=== PATIENT | male | born 1950 | race Hispanic/Latino ===

== ENCOUNTER 2017-09-29 11:42 | Observation (INO) | payer BC, MEDICARE ==
[~2017-09-29] VITALS: Ht 182.9 cm; Wt 109.8 kg
[2017-09-29 12:06] LABS: BASOPHILS % (AUTO) 0.5 % (0.0-5.0); EOSINOPHILS % (AUTO) 0.5 % (0.0-8.0); HEMATOCRIT 48.4 % (42-54); MEAN CORPUSCULAR HEMOGLOBIN 30.8 pg (27.0-33.0); MEAN CORPUSCULAR VOLUME 87.8 fL (79-99); MONOCYTES % (AUTO) 8.5 % (3.0-13.0); NEUTROPHILS % (AUTO) 80.5 % (40.0-77.0); PLATELET COUNT (AUTO) 260 K/uL (130-400); RED BLOOD CELL COUNT(AUTO) 5.51 MIL/uL (4.50-6.20); RED CELL DISTRIBUTION WIDTH 13.2 % (11.0-15.5); WHITE BLOOD COUNT (AUTO) 11.9 K/uL (4.8-10.8)
[2017-09-29 12:09] LABS: APPEARANCE,URINE Clear (CLEAR); BILIRUBIN,URINE Negative (NEGATIVE); COLOR,URINE Yellow (YELLOW); GLUCOSE, URINE (UA) Negative (NEGATIVE); KETONES,URINE Negative (NEGATIVE); LEUKOCYTE ESTERASE ,URINE Moderate (NEGATIVE); NITRATE,URINE Negative (NEGATIVE); OCCULT BLOOD,URINE Moderate (NEGATIVE); PROTEIN,URINE Trace (NEGATIVE); UROBILINOGEN,URINE 0.2 mg/dL (0.2-1.0)
[2017-09-29 12:14] LABS: CREATININE 1.2 mg/dL (0.5-1.5); POTASSIUM 3.8 mmol/L (3.5-5.1)
[2017-09-29 12:19] LABS: ALBUMIN 4.1 g/dL (3.5-5.0); BILIRUBIN,TOTAL 1.5 mg/dL (0.2-1.0); TOTAL PROTEIN, SERUM 7.7 g/dL (6.0-8.3)
[2017-09-29] MEDS ORDERED: ONDANSETRON HCL 4 MG/2 ML VIAL ONE (12:38)
[2017-09-29] MEDS ORDERED: MORPHINE SULFATE 4 MG/1ML SYG ONE (12:38)
[2017-09-29 12:45] LABS: BACTERIA,URINE Moderate /HPF (None Seen)
[2017-09-29 12:46] LABS: SQUAMOUS EPITHELIAL CELL,UR Rare /LPF (0-2)
[2017-09-29] MEDS ORDERED: KETOROLAC TROMETHAMINE 30MG/ML ONE (13:04)
[2017-09-29] MEDS ORDERED: SODIUM CHLORIDE 0.9% 1000ML 1,000 ML IV ONE (13:04)
[2017-09-29 17:25] VITALS: BP 136/85
[2017-09-29] MEDS ORDERED: NALOXONE HCL 0.4 MG/1 ML ML IVP PRN (18:15)
[2017-09-29] MEDS ORDERED: SODIUM CHLORIDE 0.9% 1000ML 1,000 ML IV PRN (18:15)
[2017-09-29] MEDS ORDERED: HYDROMORPHONE PCA 10MG/50 ML ( 0.2 MG/ML ) IV PRN (18:15)
[2017-09-29 20:00] VITALS: BP 142/76
[2017-09-29] MEDS ORDERED: ONDANSETRON HCL 4 MG/2 ML VIAL IVP PRN (21:00)
[2017-09-30] VITALS (25 sets, daily range): BP systolic 104–164; BP diastolic 2–87
[2017-09-30] MEDS ORDERED: VALS320T15 PO (09:46)
[2017-09-30] MEDS ORDERED: AMLO5TAB2 PO (09:46)
[2017-09-30] MEDS ORDERED: PHARMACY COMMUNICATION MISC SCH (10:00)
[2017-09-30] MEDS ORDERED: ONDANSETRON HCL 4 MG/2 ML VIAL IVP PRN (12:45)
[2017-09-30] MEDS ORDERED: CEFTRIAXONE 1GM/D5W 50ML 50 ML IV SCH (12:45)
[2017-09-30] MEDS ORDERED: CEFTRIAXONE SODIUM 1 GM IVP SCH (12:45)
[2017-09-30] MEDS ORDERED: HYDROMORPHONE HCL 2 MG/ML VIAL IVP PRN ×2 (13:45→21:30)
[2017-09-30] MEDS ORDERED: KETOROLAC TROMETHAMINE 15MG/ML IV PRN (13:45)
[2017-09-30] MEDS ORDERED: DEXAMETHASONE SOD PHOSPHATE 10MG/ML 1ML VIAL ONE (17:30)
[2017-09-30] MEDS ORDERED: ROCURONIUM BROMIDE 10MG/1ML 5ML VL ONE (17:30)
[2017-09-30] MEDS ORDERED: LIDOCAINE PF 2% 5ML ABBOJECT ONE (17:30)
[2017-09-30] MEDS ORDERED: MIDAZOLAM HCL 1 MG/ML 2ML VIAL ONE (17:30)
[2017-09-30] MEDS ORDERED: ONDANSETRON HCL 4 MG/2 ML VIAL ONE ×2 (17:30→20:35)
[2017-09-30] MEDS ORDERED: PROPOFOL 10 MG/ML 20ML VIAL IV ONE (17:31)
[2017-09-30] MEDS ORDERED: FENTANYL CITRATE PF 50 MCG/1 ML 2ML VIAL ONE ×3 (17:31→19:35)
[2017-09-30] MEDS ORDERED: SODIUM CHLORIDE 0.9% 1000ML 1,000 ML IV ONE (17:36)
[2017-09-30] MEDS ORDERED: ISOVUE-370 50ML VIAL IV ONE (17:50)
[2017-09-30] MEDS ORDERED: HYDROCODONE/ACETAMINOPHEN 5/325 MG TAB PO PRN ×2 (21:30)
[2017-10-01 00:11] VITALS: BP 119/72
[2017-10-01 03:45] VITALS: BP 104/60
[2017-10-01 07:00] VITALS: BP 116/76
[2017-10-01] MEDS ORDERED: TAMSULOSIN HCL 0.4 MG CAP.ER.24H PO SCH (09:00)
== END 2017-10-01 10:30 | disposition home or self-care (01) ==
LOC: EDH 11:42 → EDHIP 15:01 → 3BH 16:54
PROVIDERS: ADMIT Internal Medicine; ATTEND Internal Medicine
DX: N13.2 Hydronephrosis with renal and ureteral calculous obstruction (principal); N23 Unspecified renal colic; I10 Essential (primary) hypertension; M19.90 Unspecified osteoarthritis, unspecified site; N40.0 Benign prostatic hyperplasia without lower urinary tract symptoms; Z87.442 Personal history of urinary calculi; Z96.659 Presence of unspecified artificial knee joint
CPT/HCPCS: 36415; 50590; 74018; 74176; 80053; 81001; 85025; 96365; 96375; 96376; 99285; A4218; G0378 ×43; J0696; J1100; J1170; J1885 ×2; J2001; J2250; J2270; J2405 ×5; J2704; J3010 ×3; J3490; J7030 ×2; Q9967

== ENCOUNTER → 2018-12-07 | Outpatient (CLI) | payer BC, MEDICARE ==
[~2018-12-07] MED LIST: AMLO5TAB9 PO; VALS320T16 PO
== END | disposition home or self-care (01) ==
LOC: OIH 13:40
PROVIDERS: ATTEND Internal Medicine
DX: J98.4 Other disorders of lung (principal); M47.814 Spondylosis without myelopathy or radiculopathy, thoracic region; I70.0 Atherosclerosis of aorta; M85.88 Other specified disorders of bone density and structure, other site; Q25.46 Tortuous aortic arch; I10 Essential (primary) hypertension
CPT/HCPCS: 71046

== ENCOUNTER 2018-12-09 02:25 | Emergency (ER) | payer BC, MEDICARE ==
[2018-12-09 02:59] LABS: APPEARANCE,URINE Clear (CLEAR); BILIRUBIN,URINE Negative (NEGATIVE); COLOR,URINE Yellow (YELLOW); GLUCOSE, URINE (UA) Negative (NEGATIVE); KETONES,URINE Negative (NEGATIVE); LEUKOCYTE ESTERASE ,URINE Moderate (NEGATIVE); NITRATE,URINE Negative (NEGATIVE); OCCULT BLOOD,URINE Negative (NEGATIVE); PH,URINE 6.5 (5.0-8.0); PROTEIN,URINE Negative (NEGATIVE); UROBILINOGEN,URINE 0.2 mg/dL (0.2-1.0)
[2018-12-09 03:06] LABS: BASOPHILS % (AUTO) 0.9 % (0.0-5.0); EOSINOPHILS % (AUTO) 3.1 % (0.0-8.0); LYMPHOCYTES % (AUTO) 11.5 % (21.0-51.0); MEAN CORPUSCULAR HEMOGLOBIN 31.9 pg (27.0-33.0); MEAN CORPUSCULAR HGB CONC 35.2 g/dL (32.0-36.0); MEAN CORPUSCULAR VOLUME 90.5 fL (79-99); NEUTROPHILS % (AUTO) 74.5 % (40.0-77.0); PLATELET COUNT (AUTO) 183 K/uL (130-400); RED BLOOD CELL COUNT(AUTO) 4.09 MIL/uL (4.50-6.20); RED CELL DISTRIBUTION WIDTH 13.7 % (11.0-15.5); WHITE BLOOD COUNT (AUTO) 4.9 K/uL (4.8-10.8)
[2018-12-09 03:11] LABS: CREATININE 0.8 mg/dL (0.5-1.5)
[2018-12-09 03:11] LABS: BACTERIA,URINE Few /HPF (None Seen); RBC,URINE 0-1 /HPF (0-1); SQUAMOUS EPITHELIAL CELL,UR 0-2 /HPF (0-2)
[2018-12-09 03:15] LABS: POTASSIUM 2.7 mmol/L (3.5-5.1)
[2018-12-09] MEDS ORDERED: POTASSIUM CHLORIDE 20 MEQ ERTAB PO ONE (03:31)
[2018-12-09] MEDS ORDERED: CEPHALEXIN 500 MG CAPSULE ONE (03:38)
[2018-12-09] MEDS ORDERED: MAGNESIUM OXIDE 400 MG TABLET PO ONE (04:18)
== END 2018-12-09 04:28 | disposition home or self-care (01) ==
LOC: EDH 02:25
DX: R33.9 Retention of urine, unspecified (principal); N39.0 Urinary tract infection, site not specified; E87.6 Hypokalemia; I10 Essential (primary) hypertension; Z87.442 Personal history of urinary calculi
CPT/HCPCS: 36415; 51702; 80048; 81001; 83735; 85025; 87077; 87088; 87186; 93005

== ENCOUNTER → 2020-02-02 | Outpatient (CLI) | payer MEDICARE, OTHER | END | disposition home or self-care (01) | LOC: RAH 09:04 | PROVIDERS: ATTEND Internal Medicine | DX: R16.0 Hepatomegaly, not elsewhere classified (principal); N28.1 Cyst of kidney, acquired ==

== ENCOUNTER 2021-11-26 16:12 | Emergency (ER) | payer MEDICARE, OTHER ==
[~2021-11-26] VITALS: Ht 182.9 cm; Wt 113.4 kg
[~2021-11-26 16:12] MED LIST changes: +AMLO-257 PO; -AMLO5TAB9 PO
[2021-11-26 17:19] LABS: APPEARANCE,URINE Clear (CLEAR); BILIRUBIN,URINE Negative (NEGATIVE); COLOR,URINE Yellow (YELLOW); GLUCOSE, URINE (UA) Negative (NEGATIVE); KETONES,URINE Negative (NEGATIVE); LEUKOCYTE ESTERASE ,URINE Moderate (NEGATIVE); NITRATE,URINE Negative (NEGATIVE); OCCULT BLOOD,URINE Large (NEGATIVE); PH,URINE 6.5 (5.0-8.0); PROTEIN,URINE POS 1+ mg/dL (NEGATIVE)
[2021-11-26 17:38] LABS: BACTERIA,URINE Few /HPF (None Seen); MUCUS,URINE None Seen LPF (None Seen); SQUAMOUS EPITHELIAL CELL,UR 0-2 /HPF (0-2)
[2021-11-26 17:42] LABS: BASOPHILS % (AUTO) 0.8 % (0.0-5.0); EOSINOPHILS % (AUTO) 1.9 % (0.0-8.0); HEMATOCRIT 42.7 % (42-54); LYMPHOCYTES % (AUTO) 18.2 % (21.0-51.0); MEAN CORPUSCULAR HEMOGLOBIN 31.8 pg (27.0-33.0); MEAN CORPUSCULAR HGB CONC 34.9 g/dL (32.0-36.0); MONOCYTES % (AUTO) 9.2 % (3.0-13.0); NEUTROPHILS % (AUTO) 69.7 % (40.0-77.0); PLATELET COUNT (AUTO) 169 K/uL (130-400); RED BLOOD CELL COUNT(AUTO) 4.69 MIL/uL (4.50-6.20); RED CELL DISTRIBUTION WIDTH 13.8 % (11.0-15.5); WHITE BLOOD COUNT (AUTO) 4.8 K/uL (4.8-10.8)
[2021-11-26 17:51] LABS: CREATININE 0.8 mg/dL (0.5-1.5); POTASSIUM 3.4 mmol/L (3.5-5.1)
[2021-11-26] MEDS ORDERED: LEVO500T90 PO (21:30)
[2021-11-26 21:50] VITALS: BP 132/75
[2021-11-26] MEDS ORDERED: LEVOFLOXACIN 500 MG TABLET PO SCH (22:00)
== END 2021-11-26 22:05 | disposition home or self-care (01) ==
LOC: EDH 16:12
DX: R33.9 Retention of urine, unspecified (principal); N39.0 Urinary tract infection, site not specified; N32.0 Bladder-neck obstruction; E11.9 Type 2 diabetes mellitus without complications; I10 Essential (primary) hypertension; Z79.899 Other long term (current) drug therapy; Z87.440 Personal history of urinary (tract) infections
CPT/HCPCS: 36415; 51702; 80048; 81001; 85025; 87077; 87088; 87186

== ENCOUNTER 2023-05-23 10:38 | Observation (INO) | payer MEDICARE ==
[2023-05-23] VITALS (23 sets, daily range): BP systolic 118–146; BP diastolic 67–89; PULSE 58–77; RESP 15–20; O2SAT 96
[~2023-05-23] VITALS: Ht 181.6 cm; Wt 108.4 kg
[~2023-05-23 10:38] MED LIST changes: +CEPH500B PO; +LEVO-70 PO
[2023-05-23 11:39] LABS: BASOPHILS # (AUTO) 0.02 K/uL (0.00-0.20); BASOPHILS % (AUTO) 0.3 % (0.0-5.0); EOSINOPHILS # (AUTO) 0.04 K/uL (0.00-0.70); EOSINOPHILS % (AUTO) 0.6 % (0.0-8.0); HEMATOCRIT 40.3 % (42-54); IMMATURE GRANULOCYTE ABSOLUTE 0.05 K/uL (0-1); LYMPHOCYTES # (AUTO) 0.5 K/uL (1.0-4.8); LYMPHOCYTES % (AUTO) 7.7 % (21.0-51.0); MEAN CORPUSCULAR HEMOGLOBIN 31.4 pg (27.0-33.0); MEAN CORPUSCULAR HGB CONC 35.5 g/dL (32.0-36.0); MEAN CORPUSCULAR VOLUME 88.4 fL (79-99); MONOCYTES # (AUTO) 0.7 K/uL (0.1-1.0); MONOCYTES % (AUTO) 10.1 % (3.0-13.0); NEUTROPHILS # (AUTO) 5.4 K/uL (1.8-7.7); NEUTROPHILS % (AUTO) 80.5 % (40.0-77.0); PLATELET COUNT (AUTO) 233 K/uL (130-400); RED BLOOD CELL COUNT(AUTO) 4.56 MIL/uL (4.50-6.20); WHITE BLOOD COUNT (AUTO) 6.7 K/uL (4.8-10.8)
[2023-05-23 11:47] LABS: CREATININE 1.1 mg/dL (0.5-1.5); POTASSIUM 3.2 mmol/L (3.5-5.1)
[2023-05-23 11:55] LABS: ALBUMIN 3.1 g/dL (3.5-5.0); BILIRUBIN,TOTAL 1.6 mg/dL (0.2-1.0); TOTAL PROTEIN, SERUM 6.8 g/dL (6.0-8.3)
[2023-05-23 11:59] LABS: INR 1.13 (0.85-1.15)
[2023-05-23 12:00] LABS: PARTIAL THROMBOPLASTIN TIME 29.6 SEC (26.3-35.5)
[2023-05-23 12:30] LABS: APPEARANCE,URINE CLEAR (CLEAR); BILIRUBIN,URINE NEGATIVE (NEGATIVE); COLOR,URINE YELLOW (YELLOW); GLUCOSE, URINE (UA) NEGATIVE (NEGATIVE); KETONES,URINE 5 mg/dL (NEGATIVE); LEUKOCYTE ESTERASE ,URINE 250 Leu/uL (NEGATIVE); NITRATE,URINE NEGATIVE (NEGATIVE); OCCULT BLOOD,URINE MODERATE (NEGATIVE); PH,URINE 5.5 (5.0-8.0); PROTEIN,URINE 10 mg/dL (NEGATIVE); UROBILINOGEN,URINE 0.2 mg/dL (0.2-1.0)
[2023-05-23 12:32] LABS: ADD UA MICROSCOPIC YES
[2023-05-23 12:33] LABS: BACTERIA,URINE RARE /HPF (None Seen); MUCUS,URINE RARE LPF (None Seen); OTHER CASTS, URINE 1 /LPF (None Seen); SQUAMOUS EPITHELIAL CELL,UR RARE /HPF (0-2); UNCLASSIFIED CRYSTAL 1 /HPF (None Seen); WBC,URINE 26-50 /HPF (0-1)
[2023-05-23] MEDS ORDERED: LIDOCAINE PF 100MG/5ML (2%) SYRINGE 5ML ONE (18:36)
[2023-05-23] MEDS ORDERED: PROPOFOL 10 MG/ML 20ML VIAL IV ONE (18:37)
[2023-05-23] MEDS ORDERED: MIDAZOLAM HCL 1 MG/ML 2ML VIAL ONE (18:37)
[2023-05-23] MEDS ORDERED: ONDANSETRON 4MG INJ ONE (18:37)
[2023-05-23] MEDS ORDERED: ROCURONIUM 10MG/1ML SYR 10 MG/ML ML ONE (18:38)
[2023-05-23] MEDS ORDERED: FENTANYL CITRATE PF 50 MCG/1 ML 2ML VIAL ONE ×2 (18:38→19:20)
[2023-05-23] MEDS ORDERED: METOCLOPRAMIDE 10 MG/2 ML VIAL ONE (18:38)
[2023-05-23] MEDS ORDERED: CEFAZOLIN SODIUM 2 GM VIAL IVPB ONE (18:48)
[2023-05-23] MEDS ORDERED: CEFAZOLIN SODIUM 1 GM VIAL ONE (19:05)
[2023-05-23] MEDS ORDERED: EPHEDRINE SULFATE 50 MG/ML AMPULE ONE (19:08)
[2023-05-23] MEDS ORDERED: GLYCOPYRROLATE 1 MG/5 ML SYRINGE ONE (19:13)
[2023-05-24 00:25] VITALS: BP 118/74; PULSE 64; RESP 20
[2023-05-24 01:25] VITALS: BP 128/74; PULSE 65; RESP 20
[2023-05-24 02:25] VITALS: BP 118/68; PULSE 64; RESP 20
[2023-05-24 08:00] VITALS: BP 121/89; PULSE 65; RESP 19
[2023-05-24] MEDS ORDERED: AMLODIPINE 5 MG TAB PO SCH (09:00)
[2023-05-24] MEDS ORDERED: NON-FORMULARY MEDICATION 1 EACH (Valsartan 320 MG) PO SCH (09:00)
[2023-05-24] MEDS ORDERED: LOSARTAN 100 MG TABLET PO SCH (09:00)
[2023-05-24] MEDS ORDERED: CEPHALEXIN 500 MG CAPSULE PO SCH (09:00)
== END 2023-05-24 11:45 | disposition home or self-care (01) ==
LOC: EDH 10:38 → INTOOBSV 10:39 → DIRECT 10:39 → 3CH 17:25
PROVIDERS: ADMIT Internal Medicine; ATTEND Internal Medicine
DX: N35.913 Unspecified membranous urethral stricture, male (principal); R33.9 Retention of urine, unspecified; I10 Essential (primary) hypertension; E11.9 Type 2 diabetes mellitus without complications; E66.01 Morbid (severe) obesity due to excess calories; Z92.3 Personal history of irradiation; Z85.46 Personal history of malignant neoplasm of prostate; Z87.442 Personal history of urinary calculi; Z96.659 Presence of unspecified artificial knee joint; Z68.32 Body mass index [BMI] 32.0-32.9, adult; Z79.899 Other long term (current) drug therapy; Y84.2 Radiological procedure and radiotherapy as the cause of abnormal reaction of the patient, or of later complication, without mention of misadventure at the time of the procedure
CPT/HCPCS: 52281; 80053; 85025; 85610; 85730; 87088; 81001; 36415; 93005 ×2; 82948; G0378 ×23; G0379; J7120; C1758; C1769 ×3; J3010 ×2; J0690 ×2; J3490 ×2; J2001; J2250; J2704; J2405; J2765; A4358

== ENCOUNTER 2024-04-22 07:28 | Day surgery (SDC) | payer MEDICARE ==
[2024-04-21 12:47] LABS: BASOPHILS # (AUTO) 0.03 K/uL (0.00-0.20); BASOPHILS % (AUTO) 0.8 % (0.0-5.0); EOSINOPHILS # (AUTO) 0.15 K/uL (0.00-0.70); EOSINOPHILS % (AUTO) 3.9 % (0.0-8.0); HEMATOCRIT 35.8 % (42-54); IMMATURE GRANULOCYTE ABSOLUTE 0.02 K/uL (0-1); LYMPHOCYTES # (AUTO) 0.8 K/uL (1.0-4.8); LYMPHOCYTES % (AUTO) 21.1 % (21.0-51.0); MEAN CORPUSCULAR HEMOGLOBIN 31.4 pg (27.0-33.0); MEAN CORPUSCULAR HGB CONC 34.1 g/dL (32.0-36.0); MEAN CORPUSCULAR VOLUME 92.3 fL (79-99); MONOCYTES # (AUTO) 0.4 K/uL (0.1-1.0); MONOCYTES % (AUTO) 9.8 % (3.0-13.0); NEUTROPHILS # (AUTO) 2.5 K/uL (1.8-7.7); NEUTROPHILS % (AUTO) 63.9 % (40.0-77.0); PLATELET COUNT (AUTO) 178 K/uL (130-400); RED BLOOD CELL COUNT(AUTO) 3.88 MIL/uL (4.50-6.20); RED CELL DISTRIBUTION WIDTH 13.3 % (11.0-15.5); WHITE BLOOD COUNT (AUTO) 3.9 K/uL (4.8-10.8)
[2024-04-21 12:53] LABS: APPEARANCE,URINE CLEAR (CLEAR); BILIRUBIN,URINE NEGATIVE (NEGATIVE); COLOR,URINE LIGHT-YELLOW (YELLOW); GLUCOSE, URINE (UA) NEGATIVE (NEGATIVE); KETONES,URINE NEGATIVE (NEGATIVE); LEUKOCYTE ESTERASE ,URINE NEGATIVE Leu/uL (NEGATIVE); NITRATE,URINE NEGATIVE (NEGATIVE); OCCULT BLOOD,URINE NEGATIVE (NEGATIVE); PROTEIN,URINE NEGATIVE (NEGATIVE); UROBILINOGEN,URINE 0.2 mg/dL (0.2-1.0)
[2024-04-21 12:56] LABS: ADD UA MICROSCOPIC NO
[2024-04-21 13:00] LABS: CREATININE 2.5 mg/dL (0.5-1.3); POTASSIUM 3.7 mmol/L (3.5-5.1)
[2024-04-21 13:02] LABS: INR 1.11 (0.85-1.15); PROTHROMBIN TIME 11.9 SEC (9.6-11.6)
[2024-04-21 13:04] LABS: PARTIAL THROMBOPLASTIN TIME 26.2 SEC (26.3-35.5)
[2024-04-21 13:10] VITALS: BP 130/80; PULSE 65; RESP 17; TEMP 98.4
[~2024-04-22] VITALS: Ht 182.9 cm; Wt 99.7 kg
[2024-04-22] VITALS (22 sets, daily range): BP systolic 127–192; BP diastolic 79–104; PULSE 54–100; RESP 14–18; TEMP 97.3–97.9
[~2024-04-22 07:28] MED LIST changes: -AMLO-257 PO; +CENTRUM SILVER PO; -CEPH500B PO; +ESCI20TA38 PO; +FINA5TAB41 PO; -LEVO-70 PO; +OXYB10TA30 PO; +POTA99CA PO; +TAMS-1 PO; +TELM80TA10 PO; +TIRZ7.5P SQ; -VALS320T16 PO
[2024-04-22] MEDS: cefTRIAXone 1G VIAL ONE (08:38)
[2024-04-22] MEDS: 0.9%NACL 1000ML 1,000 ML IV ONE (08:38)
[2024-04-22] MEDS ORDERED: dexaMETHasone SOD PHOSPHATE 10MG/ML 1ML VIAL ONE (09:51)
[2024-04-22] MEDS ORDERED: LIDOCAINE HCL MPF 1% 5ML VIAL ONE (09:51)
[2024-04-22] MEDS ORDERED: rocuRONium bROMide 10MG/1ML 5ML VL ONE ×2 (09:52→11:00)
[2024-04-22] MEDS ORDERED: proPOFol 10 MG/ML 20ML VIAL IV ONE (09:52)
[2024-04-22] MEDS ORDERED: FENTanyl CITRate PF 50 MCG/1 ML 5ML AMP IV ONE (09:52)
[2024-04-22] MEDS ORDERED: MIDAZOLAM HCL 1 MG/ML 2ML VIAL ONE (09:52)
[2024-04-22] MEDS ORDERED: NEOSTIGMINE METHYLSULFATE 1MG/ML IV ONE (09:52)
[2024-04-22] MEDS ORDERED: ONDANSETRON 4MG INJ ONE (09:52)
[2024-04-22] MEDS ORDERED: GLYCOPYRROLATE 0.2 MG/ML 5 ML VIAL ONE (09:52)
[2024-04-22] MEDS: LAbetaLOL 20MG VIAL ONE (11:52)
[2024-04-22] MEDS: ONDANSETRON 4MG INJ ONE (12:06)
[2024-04-22] MEDS: hydrALAZine 20MG/ML VIAL ONE (12:34)
[2024-04-22] MEDS ORDERED: BACITRACIN 28.4 GM OINT TP ONE (13:08)
== END 2024-04-22 14:00 | disposition home or self-care (01) ==
LOC: DAH 07:28
PROVIDERS: ATTEND Urology
DX: N40.1 Benign prostatic hyperplasia with lower urinary tract symptoms (principal); N13.30 Unspecified hydronephrosis; R33.9 Retention of urine, unspecified; N35.913 Unspecified membranous urethral stricture, male; N35.912 Unspecified bulbous urethral stricture, male; I12.9 Hypertensive chronic kidney disease with stage 1 through stage 4 chronic kidney disease, or unspecified chronic kidney disease; E11.22 Type 2 diabetes mellitus with diabetic chronic kidney disease; N18.9 Chronic kidney disease, unspecified; Z85.46 Personal history of malignant neoplasm of prostate; Z79.899 Other long term (current) drug therapy; Z98.890 Other specified postprocedural states
CPT/HCPCS: 80048; 85025; 85610; 85730; 87086; 81003; 36415; 71045; 93005; 52601; 82948 ×2; 88305; A6260; A4663; J7120; A4354; C1758; J3010; J1100; J7030; J3490 ×5; J0360; J0696; J2250; J2704; J2405 ×2; J2710; A4358; C1769 ×2; A4215; A4223; A4222; A4221; A4600

== ENCOUNTER 2024-08-09 12:05 | Emergency (ER) | payer MEDICARE ==
[~2024-08-09] VITALS: Ht 182.9 cm; Wt 93.0 kg
[2024-08-09 12:05] VITALS: BP 97/59; PULSE 68; RESP 20; TEMP 98.6
[~2024-08-09 12:05] MED LIST changes: -OXYB10TA30 PO
--- NOTE | 2024-08-09 12:23 | ERN ---
ED Note History of Present Illness Stated Complaint: FEVER, BLOOD IN URINE Chief Complaint: Blood in Urine: Time Seen by MD: 12:07 Dictation: PATIENT IS A 73-YEAR-OLD MALE COMING IN TODAY WITH FEVER, NONPRODUCTIVE COUGH WITH GENERALIZED BODY WEAKNESS HE HAS HAD FOR SEVERAL DAYS. NO NAUSEA VOMITING NO DIARRHEA PATIENT RECENTLY HAD SURGERY AT [facility] FOR A HERNIA REPAIR AND WAS ADMITTED THERE SEVERAL DAYS FOR SEPSIS. NO CHEST PAIN NO BACK PAIN. STATES HE SAW HIS DOCTOR RECENTLY HOWEVER NO LABS WERE PERFORMED AND TOLD IT WAS PROBABLE VIRAL INFECTION PATIENT DOES STATE HE WAS DIAGNOSED WITH ATRIAL FIBRILLATION AT [facility] DURING THE SURGERY AND THAT THE LITHOGRAPHIC PRESS OPERATOR'S CLEARED HIM FOR THE SURGERY. HE IS NOT SURE IF HE WAS SUPPOSED TO HAVE A FOLLOW UP WITH THE LITHOGRAPHIC PRESS OPERATOR AFTER HE LEFT. HE IS Allergies: Coded Allergies: No Known Allergies (Verified Allergy, Unknown, 06/30/17) Home Meds Reported Medications Potassium Citrate (Potassium) 99 Mg Capsule, 99 MG PO DAILY, CAP 04/21/24 [Centrum Silver] No Conflict Check, 1 TAB PO DAILY 04/21/24 Escitalopram Oxalate (Escitalopram Oxalate) 20 Mg Tablet, 20 MG PO DAILY, TAB 04/21/24 Finasteride (Finasteride) 5 Mg Tablet, 5 MG PO DAILY, TAB 04/21/24 Telmisartan (Telmisartan) 80 Mg Tablet, 80 MG PO DAILY, TAB 04/21/24 Tamsulosin HCl (Flomax) 0.4 Mg Cap.er.24h, 0.4 MG PO DAILY, CAPSULE. 04/21/24 Tirzepatide (Mounjaro) 7.5 Mg/0.5 Ml Pen.injctr, 7.5 MG SQ QWEEK 04/21/24 Past Medical History Past Medical History: A-Fib, Hypertension, Prostatitis Additional Past Medical Hx: PROSTATE CA Surgical History: Other Surgical History Other: PROSTATE, HERNIA REPAIR Family History: Negative Social History: Other RN Note Reviewed/Agreed w/PFSH: Yes Review of System Dictation CONSTITUTIONAL: NEGATIVE EXCEPT FOR HPI FEVER, GENERALIZED BODY WEAKNESS HEAD/FACE: NEGATIVE EXCEPT FOR HPI EENT: NEGATIVE EXCEPT FOR HPI RESPIRATORY: NEGATIVE EXCEPT FOR HPI SHORTNESS A BREATH GASTROINTESTINAL/ABDOMINAL: NEGATIVE EXCEPT FOR HPI GENITOURINARY: NEGATIVE EXCEPT FOR HPI MUSCULOSKELETAL: NEGATIVE EXCEPT FOR HPI INTEGUMENTARY: NEGATIVE EXCEPT FOR HPI NEUROLOGICAL/PSYCH: NEGATIVE EXCEPT FOR HPI HEMATOLOGIC/LYMPHATIC: NEGATIVE EXCEPT FOR HPI ALL SYSTEMS NEGATIVE, EXCEPT NOTED ABOVE. 13 POINT REVIEW OF SYSTEMS ASSESSED AND ALL NEGATIVE EXCEPT FOR ABOVE. Initial Vital Sign VS Vital Signs Date Time Temp Pulse Resp B/P (MAP) Pulse Ox O2 Delivery O2 Flow Rate FiO2 08/09/24 12:05 98.6 68 20 97/59 99 Room Air 0 Physical Exam Dictation VITAL SIGNS REVIEWED GENERAL APPEARANCE: ALERT, ORIENTED X 3, WELL GRANULATED MIDLINE ABDOMINAL INCISION. HEAD AND FACE: NON-TRAUMATIC. EYES: PERRL, PINK CONJUNCTIVAS, EYELID NO TRAUMA, ANTERIOR CHAMBER WITH ARCUS SENILIS. EARS: PINNAS INTACT AND NO SIGNS OF TRAUMA OR ERYTHEMA EAR CANALS CLEAR AND NO DISCHARGE TM NO ERYTHEMA NOSE: NO DISCHARGE, NO BLEEDING. OROPHARYNX: MOUTH NORMAL, TONGUE PINK, PHARYNX CLEAR,NO ERYTHEMA, TONSILS NO EXUDATES, NO ABSCESSES NOTED, MUCOUS MEMBRANE MOIST NECK: SUPPLE, NON-TENDER, NO THYROMEGALY, NO MASSES, NO JVD, NO BRUITS BREAST:DEFERRED CHEST:NO TENDERNESS, NO CREPITUS, NO PARADOXICAL MOVEMENT, NO RETRACTIONS LUNGS:CLEAR, WELL-VENTILATED, SYMMETRIC, NO RALES, NO WHEEZING, NO RHONCHI, NO STRIDOR, GOOD BREATH SOUNDS BILATERALLY HEART: IRREGULARLY IRREGULAR, NO MURMUR, NO GALLOPS VASCULAR: NO PERIPHERAL EDEMA, ABDOMEN: SOFT, POSITIVE BOWEL SOUNDS, NONDISTENDED, NO GUARDING, NONTENDER, NO REBOUND, NO MASSES NO HEPATOMEGALY, NO SPLENOMEGALY, NO VEGA'S SIGN, NO HERNIAS. RECTAL: DEFERRED GENITAL: DEFERRED NEUROLOGICAL: NORMAL SPEECH, MOTOR FUNCTION INTACT, SENSORY FUNCTION INTACT MUSCULOSKELETAL: NECK NONTENDER, FULL RANGE OF MOTION, BACK NONTENDER, FULL RANGE OF MOTION, EXTREMITIES: NONTENDER, FULL RANGE OF MOTION SKIN: COLOR PINK, DRY, NO TURGOR, NO RASH, NO LACERATIONS, NO ABRASIONS, NO CONTUSIONS. LYMPHATIC: DEFERRED Results (Laboratory/Radiology) Laboratory/Radiology Laboratory Tests Test 08/09/24 12:17 08/09/24 13:04 08/09/24 13:08 SARS-CoV-2 Antigen (Rapid) PRESUMPTIVE NEGATIVE White Blood Count 16.4 K/uL (4.8-10.8) H Red Blood Count 3.75 MIL/uL (4.50-6.20) L Hemoglobin 11.8 g/dL (14.0-18.0) L Hematocrit 34.4 % (42-54) L Mean Corpuscular Volume 91.7 fL (79-99) Mean Corpuscular Hemoglobin 31.5 pg (27.0-33.0) Mean Corpuscular Hemoglobin Concent 34.3 g/dL (32.0-36.0) Red Cell Distribution Width 14.7 % (11.0-15.5) Platelet Count 422 K/uL (130-400) H Mean Platelet Volume 8.8 fL (7.5-10.5) Immature Granulocyte % (Auto) 1.0 % (0-1) Neutrophils (%) (Auto) 88.9 % (40.0-77.0) H Lymphocytes (%) (Auto) 3.3 % (21.0-51.0) L Monocytes (%) (Auto) 6.1 % (3.0-13.0) Eosinophils (%) (Auto) 0.3 % (0.0-8.0) Basophils (%) (Auto) 0.4 % (0.0-5.0) Neutrophils # (Auto) 14.6 K/uL (1.8-7.7) H Lymphocytes # (Auto) 0.5 K/uL (1.0-4.8) L Monocytes # (Auto) 1.0 K/uL (0.1-1.0) Eosinophils # (Auto) 0.05 K/uL (0.00-0.70) Basophils # (Auto) 0.06 K/uL (0.00-0.20) Absolute Immature Granulocyte (auto 0.17 K/uL (0-1) Nucleated Red Blood Cells 0.0 % (0.0-0.19) White Cell Morphology Comment See comments Sodium Level 132 mmol/L (136-145) L Potassium Level 3.8 mmol/L (3.5-5.1) Chloride Level 99 mmol/L (101-111) L Carbon Dioxide Level 26 mmol/L (21-32) Blood Urea Nitrogen 33 mg/dL (7-18) H Creatinine 2.2 mg/dL (0.5-1.3) H Glomerular Filtration Rate Calc 31 mL/min (>90) Random Glucose 118 mg/dL (70-105) H Lactic Acid Level 2.7 mmol/L (0.8-2.5) H Total Calcium 9.0 mg/dL (8.5-10.1) B-Type Natriuretic Peptide 224 pg/mL (0-100) H Urine Color LIGHT-ORANGE (YELLOW) Urine Appearance TURBID (CLEAR) Urine pH 6.0 (5.0-8.0) Urine Specific [place] 1.007 (1.001-1.031) Urine Protein 100 mg/dL (NEGATIVE) H Urine Glucose (UA) NEGATIVE mg/dL (NEGATIVE) Urine Ketones NEGATIVE mg/dL (NEGATIVE) Urine Occult Blood LARGE (NEGATIVE) H Urine Nitrate NEGATIVE (NEGATIVE) Urine Bilirubin NEGATIVE mg/dL (NEGATIVE) Urine Urobilinogen 0.2 mg/dL (0.2-1.0) Urine Leukocyte Esterase 500 Natalie/uL (NEGATIVE) H Urine RBC 11-25 /HPF (0-1) H Urine WBC TNTC /HPF (0-1) H Urine WBC Clumps (Auto) MANY /HPF (0-1) Urine Bacteria FEW /HPF (None Seen) 1307, CHEST X-RAY NEGATIVE Labs Reviewed?: Yes EKG Comment: EKG ATRIAL FIBRILLATION/VENTRICULAR RATE 98/VENTRICULAR BIGEMINY/LEFT AXIS DEVIATION ED Course ED Course Orders Procedure Category Date Status Time Blood Cult CRISELDA 08/09/24 In Process 12:15 Lactic Acid LAB 08/09/24 Complete 12:15 Covid19 (Sars Antigen LAB 08/09/24 Complete Rapid) 12:15 Cbc With Differential LAB 08/09/24 Complete 12:15 Urinalysis Profile LAB 08/09/24 Complete 12:15 12 Lead Ekg Tracing- EKG 08/09/24 Complete Technical 12:15 Chest 1vw RAD 08/09/24 Resulted 12:15 Basic Metabolic Panel LAB 08/09/24 Complete 12:15 B-Type Natriuretic LAB 08/09/24 Complete Peptide 12:15 0.9%Nacl 1000ml (Ns PHA 08/09/24 In Process 1000ml) 14:00 Ceftriaxone 2gm Vial PHA 08/09/24 Complete (Rocephin 2gm Inj) 14:00 Culture Urine CRISELDA 08/09/24 In Process 14:02 Current Medications Medications (Trade) Dose Ordered Sig/Sukhi Route PRN Reason Start Time Stop Time Status Last Admin Dose Admin Ceftriaxone Sodium (Rocephin 2gm Inj) 2 gm ONCE ONCE IVPB 08/09/24 14:00 08/09/24 14:01 DC Sodium Chloride 2,790 ml @ 930 mls/hr ONCE ONCE IV 08/09/24 14:00 08/09/24 16:59 Vital Signs Date Time Temp Pulse Resp B/P (MAP) Pulse Ox O2 Delivery O2 Flow Rate FiO2 08/09/24 12:05 98.6 68 20 97/59 99 Room Air 0 SIXTEEN 10, PATIENT [place] 07744 WBCS WITH A 2.7 LACTIC ACID HE REMAINS OUTSIDE AND WAITING ROOM DUE TO NO BEDS AVAILABLE TO AR EMERGENCY ROOM WE WILL CONTINUE TO MONITOR HEMODYNAMIC STABILITY UNTIL HE CAN BE BEDDED AND ADMITTED. DX & DISP Departure Condition: Stable Referrals: MAK GARCIA MD (PCP) RYAN AZAR NP Aug 09, 2024 12:23
--- NOTE | 2024-08-09 13:09 | HMCIMG ---
Exam Type: CHEST 1VW Clinical Information: SHORTNESS A BREATH Comparison: None Findings: The lungs are clear of infiltrates. The heart is enlarged. Bony and soft tissue structures of the chest wall are unremarkable. IMPRESSION: Cardiomegaly. Clear lungs.
[2024-08-09 13:16] LABS: BASOPHILS # (AUTO) 0.06 K/uL (0.00-0.20); BASOPHILS % (AUTO) 0.4 % (0.0-5.0); EOSINOPHILS # (AUTO) 0.05 K/uL (0.00-0.70); EOSINOPHILS % (AUTO) 0.3 % (0.0-8.0); HEMATOCRIT 34.4 % (42-54); IMMATURE GRANULOCYTE ABSOLUTE 0.17 K/uL (0-1); LYMPHOCYTES # (AUTO) 0.5 K/uL (1.0-4.8); LYMPHOCYTES % (AUTO) 3.3 % (21.0-51.0); MEAN CORPUSCULAR HEMOGLOBIN 31.5 pg (27.0-33.0); MEAN CORPUSCULAR HGB CONC 34.3 g/dL (32.0-36.0); MEAN CORPUSCULAR VOLUME 91.7 fL (79-99); MONOCYTES % (AUTO) 6.1 % (3.0-13.0); NEUTROPHILS # (AUTO) 14.6 K/uL (1.8-7.7); NEUTROPHILS % (AUTO) 88.9 % (40.0-77.0); PLATELET COUNT (AUTO) 422 K/uL (130-400); RED BLOOD CELL COUNT(AUTO) 3.75 MIL/uL (4.50-6.20); RED CELL DISTRIBUTION WIDTH 14.7 % (11.0-15.5); WHITE BLOOD COUNT (AUTO) 16.4 K/uL (4.8-10.8)
[2024-08-09 13:29] LABS: CREATININE 2.2 mg/dL (0.5-1.3); POTASSIUM 3.8 mmol/L (3.5-5.1)
[2024-08-09 13:44] LABS: B-TYPE NATRIURETIC PEPTIDE 224 pg/mL (0-100)
[2024-08-09 14:00] LABS: APPEARANCE,URINE TURBID (CLEAR); BILIRUBIN,URINE NEGATIVE (NEGATIVE); COLOR,URINE LIGHT-ORANGE (YELLOW); GLUCOSE, URINE (UA) NEGATIVE (NEGATIVE); KETONES,URINE NEGATIVE (NEGATIVE); LEUKOCYTE ESTERASE ,URINE 500 Leu/uL (NEGATIVE); NITRATE,URINE NEGATIVE (NEGATIVE); OCCULT BLOOD,URINE LARGE (NEGATIVE); PROTEIN,URINE 100 mg/dL (NEGATIVE); UROBILINOGEN,URINE 0.2 mg/dL (0.2-1.0)
[2024-08-09] MEDS ORDERED: CEFTRIAXONE 2GM VIAL IVPB ONE (14:00)
[2024-08-09] MEDS ORDERED: [UNRECOGNIZED DRUG - OTHER] IV ONE (14:00)
[2024-08-09 14:02] LABS: ADD UA MICROSCOPIC YES
[2024-08-09 14:04] LABS: BACTERIA,URINE FEW /HPF (None Seen); MUCUS,URINE RARE LPF (None Seen); WBC CLUMP MANY /HPF (0-1); WBC,URINE TNTC /HPF (0-1)
--- NOTE | 2024-08-09 14:46 | EKG ---
[facility] Test Date: 2024-08-09 Test Time: 12:17:15 Pat Name: KEITH CRUZ Department: ED Room: Gender: M Investigation Officer: [id number] : [id number] Requested By: RYAN AZAR Order Number: [id number] Reading MD: Luisa Gillespie Measurements Intervals [place] Rate: 98 P: 0 WI: 0 QRS: -33 QRSD: 105 T: 87 QT: 375 QTc: 479 Interpretive Statements Atrial fibrillation Ventricular bigeminy Left axis deviation Compared to ECG 04/21/2024 12:31:47 Ventricular premature complex(es) now present Left-axis deviation now present Intraventricular conduction delay no longer present Electronically Signed On 08-09-2024 18:08:25 PIECE JOBBER by Luisa Gillespie Please click the below link to view image of tracing.
--- NOTE | 2024-08-09 19:20 | NUR ---
called in er lobby, no answer.
[2024-08-10] MEDS ORDERED: AMOX1TAB16 PO (15:34)
[2024-08-10] MEDS ORDERED: TAMS-1 PO (15:34)
== END 2024-08-09 20:02 | disposition left against medical advice (07) ==
LOC: EDH 12:05
DX: R51.9 Headache, unspecified (principal); R31.9 Hematuria, unspecified; I48.91 Unspecified atrial fibrillation; I10 Essential (primary) hypertension; Z79.899 Other long term (current) drug therapy; Z85.46 Personal history of malignant neoplasm of prostate; Z98.890 Other specified postprocedural states; Z20.822 Contact with and (suspected) exposure to COVID-19
CPT/HCPCS: 36415; 71045; 80048; 81001; 83605; 83880; 85025; 87040; 87086; 87186; 87426; 93005; 99285

== ENCOUNTER 2024-08-10 11:19 | Emergency (ER) | payer MEDICARE ==
[~2024-08-10] VITALS: Ht 182.9 cm; Wt 91.6 kg
[2024-08-10 11:23] VITALS: TEMP 98.2
--- NOTE | 2024-08-10 11:39 | NUR ---
PT JUST NOW PLACED IN MY ED BED 19
--- NOTE | 2024-08-10 12:25 | ERN ---
ED Note History of Present Illness Stated Complaint: HEMATURIA Chief Complaint: Blood in Urine: Time Seen by MD: 12:07 Dictation: PATIENT IS A 73-YEAR-OLD MALE COMING IN TODAY WITH HEMATURIA WITH PELVIC WITH FEVER AND CHILLS HE HAS HAD FOR SEVERAL DAYS. HE IS STATUS POST A VENTRAL HERNIA REPAIR WITH MESH MAY 2024 AT [facility], DR. OLIVARES. AFEBRILE AT THIS TIME HOWEVER, DOES NOT WANT TO GO BACK TO [facility] BECAUSE OF A POOR EXPERIENCE HE HAD THERE. PATIENT WAS HERE LAST NIGHT FOR T HE SAME COMPLAINT WAS WORKED UP AND THEN SIGNED OUT AGAINST MEDICAL ADVICE WITH HIS BECAUSE HIS SON IT CALLED THE LEGEND MA[facility] AND THEY SAID THEY COULD ACCEPT HIM DUE TO NO BEDS AVAILABLE AT [facility]. STATES WHEN SHE GOT TO [facility], THAT THEY TOLD HER THAT IT SHOULD HAVE BEEN A TRANSFER AND THEY WOULD NOT ACCEPT PATIENT. Allergies: Coded Allergies: No Known Allergies (Verified Allergy, Unknown, 06/30/17) Home Meds Reported Medications Potassium Citrate (Potassium) 99 Mg Capsule, 99 MG PO DAILY, CAP 04/21/24 [Centrum Silver] No Conflict Check, 1 TAB PO DAILY 04/21/24 Escitalopram Oxalate (Escitalopram Oxalate) 20 Mg Tablet, 20 MG PO DAILY, TAB 04/21/24 Finasteride (Finasteride) 5 Mg Tablet, 5 MG PO DAILY, TAB 04/21/24 Telmisartan (Telmisartan) 80 Mg Tablet, 80 MG PO DAILY, TAB 04/21/24 Tamsulosin HCl (Flomax) 0.4 Mg Cap.er.24h, 0.4 MG PO DAILY, CAPSULE.DR 04/21/24 Tirzepatide (Mounjaro) 7.5 Mg/0.5 Ml Pen.injctr, 7.5 MG SQ QWEEK 04/21/24 Past Medical History Past Medical History: Cancer, Hypertension Additional Past Medical Hx: PROSTATE CA Surgical History: Other Surgical History Other: ABD HERNIA, BILAT KNEE Family History: Negative Social History: Other RN Note Reviewed/Agreed w/PFSH: Yes Review of System Dictation CONSTITUTIONAL: NEGATIVE EXCEPT FOR HPI FEVER CHILLS HEAD/FACE: NEGATIVE EXCEPT FOR HPI EENT: NEGATIVE EXCEPT FOR HPI RESPIRATORY: NEGATIVE EXCEPT FOR HPI GASTROINTESTINAL/ABDOMINAL: NEGATIVE EXCEPT FOR HPI SUPRAPUBIC/UMBILICAL PAIN TENDERNESS GENITOURINARY: NEGATIVE EXCEPT FOR HPI HEMATURIA MUSCULOSKELETAL: NEGATIVE EXCEPT FOR HPI INTEGUMENTARY: NEGATIVE EXCEPT FOR HPI NEUROLOGICAL/PSYCH: NEGATIVE EXCEPT FOR HPI HEMATOLOGIC/LYMPHATIC: NEGATIVE EXCEPT FOR HPI ALL SYSTEMS NEGATIVE, EXCEPT NOTED ABOVE. 13 POINT REVIEW OF SYSTEMS ASSESSED AND ALL NEGATIVE EXCEPT FOR ABOVE. Initial Vital Sign VS Vital Signs Date Time Temp Pulse Resp B/P (MAP) Pulse Ox O2 Delivery O2 Flow Rate FiO2 08/10/24 11:23 98.2 86 18 95/58 98 Room Air 0 08/10/24 15:21 21 Physical Exam Dictation VITAL SIGNS REVIEWED GENERAL APPEARANCE: ALERT, ORIENTED X 3, MODERATE ACUTE DISTRESS, WELL DEVELOPED, NOURISHED. HEAD AND FACE: NON-TRAUMATIC. EYES: PERRL, PINK CONJUNCTIVAS, EYELID NO TRAUMA, ANTERIOR CHAMBER WITH ARCUS SENILIS. EARS: PINNAS INTACT AND NO SIGNS OF TRAUMA OR ERYTHEMA EAR CANALS CLEAR AND NO DISCHARGE TM NO ERYTHEMA NOSE: NO DISCHARGE, NO BLEEDING. OROPHARYNX: MOUTH NORMAL, TONGUE PINK, PHARYNX CLEAR,NO ERYTHEMA, TONSILS NO EXUDATES, NO ABSCESSES NOTED, MUCOUS MEMBRANE MOIST NECK: SUPPLE, NON-TENDER, NO THYROMEGALY, NO MASSES, NO JVD, NO BRUITS BREAST:DEFERRED CHEST:NO TENDERNESS, NO CREPITUS, NO PARADOXICAL MOVEMENT, NO RETRACTIONS LUNGS:CLEAR, WELL-VENTILATED, SYMMETRIC, NO RALES, NO WHEEZING, NO RHONCHI, NO STRIDOR, GOOD BREATH SOUNDS BILATERALLY HEART: REGULAR RATE, REGULAR RHYTHM, NO MURMUR, NO GALLOPS VASCULAR: NO PERIPHERAL EDEMA, ABDOMEN: SOFT, POSITIVE BOWEL SOUNDS, NONDISTENDED, NO GUARDING, SUPRAPUBIC TENDERNESS WITH PALPATION, NO REBOUND, NO MASSES NO HEPATOMEGALY, NO SPLENOMEGALY, NO VEGA'S SIGN, NO HERNIAS. LAPAROSCOPIC SITES TO UMBILICUS AND BILATERAL LOWER QUADRANTS WELL APPROXIMATED AND GRANULATED NO ERYTHEMA NO TENDERNESS RECTAL: DEFERRED GENITAL: DEFERRED NEUROLOGICAL: NORMAL SPEECH, MOTOR FUNCTION INTACT, SENSORY FUNCTION INTACT MUSCULOSKELETAL: NECK NONTENDER, FULL RANGE OF MOTION, BACK NONTENDER, FULL RANGE OF MOTION, EXTREMITIES: NONTENDER, FULL RANGE OF MOTION SKIN: COLOR PINK, DRY, NO TURGOR, NO RASH, NO LACERATIONS, NO ABRASIONS, NO CONTUSIONS. LYMPHATIC: DEFERRED Results (Laboratory/Radiology) Laboratory/Radiology Laboratory Tests Test 08/10/24 12:39 White Blood Count 10.7 K/uL (4.8-10.8) # Red Blood Count 3.35 MIL/uL (4.50-6.20) L Hemoglobin 10.4 g/dL (14.0-18.0) L Hematocrit 30.9 % (42-54) L Mean Corpuscular Volume 92.2 fL (79-99) Mean Corpuscular Hemoglobin 31.0 pg (27.0-33.0) Mean Corpuscular Hemoglobin Concent 33.7 g/dL (32.0-36.0) Red Cell Distribution Width 14.6 % (11.0-15.5) Platelet Count 280 K/uL (130-400) # Mean Platelet Volume 8.5 fL (7.5-10.5) Immature Granulocyte % (Auto) 1.2 % (0-1) H Neutrophils (%) (Auto) 87.7 % (40.0-77.0) H Lymphocytes (%) (Auto) 3.5 % (21.0-51.0) L Monocytes (%) (Auto) 6.6 % (3.0-13.0) Eosinophils (%) (Auto) 0.7 % (0.0-8.0) Basophils (%) (Auto) 0.3 % (0.0-5.0) Neutrophils # (Auto) 9.4 K/uL (1.8-7.7) H Lymphocytes # (Auto) 0.4 K/uL (1.0-4.8) L Monocytes # (Auto) 0.7 K/uL (0.1-1.0) Eosinophils # (Auto) 0.07 K/uL (0.00-0.70) Basophils # (Auto) 0.03 K/uL (0.00-0.20) Absolute Immature Granulocyte (auto 0.13 K/uL (0-1) Nucleated Red Blood Cells 0.0 % (0.0-0.19) Sodium Level 133 mmol/L (136-145) L Potassium Level 3.3 mmol/L (3.5-5.1) L Chloride Level 99 mmol/L (101-111) L Carbon Dioxide Level 26 mmol/L (21-32) Blood Urea Nitrogen 39 mg/dL (7-18) H Creatinine 2.2 mg/dL (0.5-1.3) H Glomerular Filtration Rate Calc 31 mL/min (>90) Random Glucose 148 mg/dL (70-105) H Lactic Acid Level 2.2 mmol/L (0.8-2.5) Total Calcium 8.3 mg/dL (8.5-10.1) L Lipase 40 U/L (16-77) Findings: Bilateral moderate to severe hydroureteronephrosis. Bilateral simple renal cysts. Urinary bladder wall is thickened and the prostate is enlarged and these findings may represent chronic bladder outlet obstruction. The lung bases are clear. The stomach is unremarkable. It shows no wall thickening. No gross ulceration is seen. It is not overly distended. There are no surrounding inflammatory changes. No wall lesions are identified to suggest cancer. There is irregular in contour and the spleen is enlarged and these findings may represent cirrhosis. The pancreas shows normal anatomy. It is not fatty replaced. It shows no lesions. The pancreatic duct is not dilated. There is evidence of cholelithiasis. No evidence of acute or chronic inflammation is seen. The adrenal glands are unremarkable. There is no enlargement. No lesions are noted. The appendix is unremarkable. It shows no evidence of inflammation. No appendicolith is seen. The small bowel is unremarkable. There is no evidence of dilatation to suggest obstruction. No evidence of adynamic ileus is seen. There is no small bowel wall thickening to suggest enteritis. There is diverticulosis. There is no evidence of acute inflammation to suggest diverticulitis. The colon is otherwise unremarkable.. Prostate is significantly enlarged. The other pelvic structures are unremarkable. The bony and vascular structures are unremarkable for the patient's age. IMPRESSION: Findings consistent with chronic bladder outlet obstruction and bilateral hydroureteronephrosis. Cholelithiasis and findings suggestive of cirrhosis. Labs Reviewed?: Yes ED Course ED Course Orders Procedure Category Date Status Time Blood Cult CRISELDA 08/10/24 In Process 12:20 Lactic Acid LAB 08/10/24 Complete 12:20 Cbc With Differential LAB 08/10/24 Complete 12:20 Urinalysis Profile LAB 08/10/24 Logged 12:20 Ct Abdomen/Pelvis CT 08/10/24 Resulted W/Contrast 12:20 0.9%Nacl 1000ml (Ns PHA 08/10/24 Complete 1000ml) 12:30 Ketorolac PHA 08/10/24 Complete Tromethamine 15mg/Ml 12:30 Lipase LAB 08/10/24 Complete 12:20 Basic Metabolic Panel LAB 08/10/24 Complete 12:20 Ceftriaxone 1g Vial PHA 08/10/24 Complete (Rocephine 1g Inj) 12:59 0.9%Nacl 1000ml (Ns PHA 08/10/24 In Process 1000ml) 13:00 Potassium Bicarb/Cit PHA 08/10/24 Complete Ac 25meq (K-Lyte Ta 14:00 Iohexol (Omnipaque) PHA 08/10/24 Complete 13:41 Current Medications Medications (Trade) Dose Ordered Sig/Sukhi Route PRN Reason Start Time Stop Time Status Last Admin Dose Admin Ceftriaxone Sodium (ROCEphine 1G INJ) 1 gm ONCE STAT IVPB 08/10/24 12:59 08/10/24 13:03 DC 08/10/24 13:32 Iohexol (Omnipaque) 50 ml STK-MED ONCE IV 08/10/24 13:41 08/10/24 13:42 DC Ketorolac Tromethamine (toRADol) 15 mg ONCE ONCE IV 08/10/24 12:30 08/10/24 12:31 DC Potassium Bicarbonate (K-Lyte Tablet Eff 25 Meq Tablet.eff) 25 meq ONCE ONCE PO 08/10/24 14:00 08/10/24 14:01 DC Sodium Chloride 1,000 ml @ 0 mls/hr ONCE ONCE IV 08/10/24 12:30 08/10/24 12:31 DC 08/10/24 12:45 Sodium Chloride 2,748 ml @ 916 mls/hr ONCE ONCE IV 08/10/24 13:00 08/10/24 15:59 08/10/24 13:32 Vital Signs Date Time Temp Pulse Resp B/P (MAP) Pulse Ox O2 Delivery O2 Flow Rate FiO2 08/10/24 15:21 85 17 133/76 98 Room Air* 0 21 08/10/24 11:23 98.2 86 18 95/58 98 Room Air 0 FIFTEEN 20, SPOKE WITH PATIENT AND AT LENGTH REGARDING CLINICAL FINDINGS TO INCLUDE CT SCAN. 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 LOPEZ UNTIL LAST MONTH WHEN DR. LOPEZ CLOSED HIS PRACTICE AND [facility]. HE HAS BEEN REFERRED TO DR. KAMILLE ESQUIVEL AT [facility] HOWEVER HAS NOT BEEN TO SEE HIM YET. HE ALSO TELLS ME THAT HE IS CURRENTLY SELF CATHING EVERY OTHER DAY AND HAD BEEN TOLD TO DO THIS BY DR. LOPEZ BEFORE HE LEFT THIS PRACTICE. HE STATES HE HAS NOT BEEN DOING THIS INSTRUCTED BY DR. LOPEZ. I ADVISED HIM OF HIS LABS BEING IMPROVED FROM YESTERDAY HOWEVER HE DOES HAVE. STAGE FOUR CHRONIC KIDNEY DISEASE. I STRONGLY ADVISED HIM THAT I WOULD LIKE TO TRANSFER HIM TO A HIGHER LEVEL OF CARE WITH UROLOGY CONSULTATION DO THE FINDINGS OF BILATERAL HYDRONEPHROSIS AND EMPIRIC KIDNEY FUNCTION HOWEVER HE AND HIS INSISTED THAT THEY DO NOT WANT TO STAY IF THE LACTIC ACIDOSIS IS IMPROVED. THE ASKED ME TO PROVIDE ANTIBIOTICS AND THAT THEY WERE GOING TO DRIVE TO [facility] PER THEIR DOCTOR'S INSTRUCTIONS IN THE NEXT 1-2 DAYS. PATIENT REMAINS HEMODYNAMICALLY STABLE HAS RECEIVED IV FLUIDS AND ROCEPHIN. WE WILL BE DISCHARGED HOME ON AUGMENTIN AND FLOMAX. ADDITIONALLY HE IS IN STAGE 4 CHRONIC KIDNEY DISEASE, THIS IS CONSISTENT WITH PRIOR ER VISITS AND LAB VALUES Medical Decision Making MDM MDM: DIFFERENTIAL DIAGNOSIS: DIVERTICULITIS/PANCREATITIS/PROSTATE ENLARGEMENT/UTI/HEMATURIA/ELECTROLYTE IMBALANCE/DEHYDRATION/SURGICAL ABSCESS RATIONALE: TESTS CONSIDERED AND ORDERED SECONDARY TO SHARED DECISION MAKING INCLUDE: LABS/RADIOLOGY PREVIOUS OUTSIDE RECORDS REVIEWED: OLD ER VISITS. REVIEWED RISK OF COMPLICATION AND/OR MORBIDITY OR MORTALITY OF PATIENT MANAGEMENT: MILD MEDICATIONS-PER MEDICATION RECONCILIATION SEE NURSE'S NOTES NEED FOR HOSPITALIZATION: PATIENT DOES NOT MEET CRITERIA FOR HOSPITALIZATION. PATIENT REFUSED TO BE TRANSFERRED TO HIGHER LEVEL OF CARE NEED FOR EMERGENCY MAJOR/MINOR SURGERY: NO THERE ARE NO SOCIAL CONCERNS WITH THIS PATIENT. PRESCRIPTION DRUG MANAGEMENT AUGMENTIN PRESCRIPTIONS WILL INCLUDE SYMPTOMATIC CARE PATIENT'S PRIOR EXTERNAL MEDICAL RECORDS FROM OTHER ER VISITS WERE REVIEWED BY ME INDICATED. PRIOR TESTING AND RESULTS FROM PREVIOUS VISITS WERE REVIEWED. PRIOR TESTS WERE TAKEN INTO ACCOUNT WITH MEDICAL DECISION MAKING AND RESOURCE UTILIZATION, INDEPENDENT HISTORIAN/HISTORIANS WERE USED TO OBTAIN COMPLETE MEDICAL HISTORY. I INDEPENDENTLY INTERPRETED THE TEST THAT WERE PERFORMED, RESULTS WERE REVIEWED BY ME AND CONSIDERED FINDINGS ON RADIOLOGY IF ORDERED. MEDICAL MANAGEMENT AND EXAMINATION INTERPRETATION DISCUSSIONS WERE HAD BY ME WITH OTHER QUALIFIED HEALTHCARE PROFESSIONALS INDICATED FOR THE PATIENT'S CARE. DX & DISP Disposition: Discharge Departure Impression: Primary Impression: Acute cystitis with hematuria Additional Impressions: Stage 4 chronic kidney disease, Hypokalemia, Hydroureteronephrosis, Bladder outflow obstruction, Sepsis Condition: Stable Scripts Tamsulosin HCl (Flomax) 0.4 Mg Cap.er.24h 0.4 MG PO DAILY, #30 CAPSULE. Prov: RYAN AZAR NP 08/10/24 Amoxicillin/Potassium Clav (Amox Tr-K Clv 875-125 mg Tab) 875 Mg-125 Mg Tablet 1 EACH PO BID for 7 Days, #14 TAB 0 Refills Prov: RYAN AZAR NP 08/10/24 Additional Instructions: FOLLOW-UP WITH PRIMARY CARE PROVIDER IN 1 TO 2 DAYS. TAKE MEDICATIONS DIRECTED HERE IN THE EMERGENCY ROOM. OKAY TO CONTINUE HOME MEDICATIONS UNLESS OTHERWISE DISCUSSED DURING YOUR VISIT IN THE EMERGENCY ROOM TODAY. RETURN TO YOUR NEAREST EMERGENCY ROOM IF SYMPTOMS WORSEN OR IF THERE IS NO IMPROVEMENT. CALL 911 IF YOU NEED IMMEDIATE ASSISTANCE. TAKE TYLENOL OR MOTRIN [id number] NEEDED AND IF NO CONTRAINDICATIONS ARE PRESENT. INCREASE ORAL HYDRATION. A WOUND CULTURE OR URINE CULTURE WAS ORDERED HERE IN THE EMERGENCY ROOM DEPARTMENT PLEASE FOLLOW-UP WITH PRIMARY CARE PROVIDER AND ADVISE THEM TO GET REPEAT PORTS FROM OUR FACILITY. IF YOU HAD ANY MER WRAP/SPLINTS THAT WERE APPLIED HERE, PLEASE DO NOT REMOVE THEM UNTIL YOU SEE YOUR PRIMARY CARE OR SPECIALTY. CONTINUE TO SELF CATH PER YOUR INSTRUCTIONS FROM DR. LOPEZ. FOLLOW UP WITH THE UROLOGIST IN THE NEXT 1-2 DAYS AND TAKE ANTIBIOTICS DIRECTED UNTIL GONE. Referrals: MAK GARCIA MD (PCP) Time of Disposition: 15:33 I have reviewed the case, and I agree with, Diagnosis and Plan RYAN AZAR NP Aug 10, 2024 12:25
[2024-08-10] MEDS: ketOROlac 15MG/ML VIAL (15MG/ML) IV ONE (12:30)
[2024-08-10] MEDS: 0.9%NACL 1000ML 1,000 ML IV ONE (12:45)
[2024-08-10 12:48] LABS: BASOPHILS # (AUTO) 0.03 K/uL (0.00-0.20); BASOPHILS % (AUTO) 0.3 % (0.0-5.0); EOSINOPHILS # (AUTO) 0.07 K/uL (0.00-0.70); EOSINOPHILS % (AUTO) 0.7 % (0.0-8.0); HEMATOCRIT 30.9 % (42-54); IMMATURE GRANULOCYTE ABSOLUTE 0.13 K/uL (0-1); LYMPHOCYTES # (AUTO) 0.4 K/uL (1.0-4.8); LYMPHOCYTES % (AUTO) 3.5 % (21.0-51.0); MEAN CORPUSCULAR HGB CONC 33.7 g/dL (32.0-36.0); MEAN CORPUSCULAR VOLUME 92.2 fL (79-99); MONOCYTES # (AUTO) 0.7 K/uL (0.1-1.0); MONOCYTES % (AUTO) 6.6 % (3.0-13.0); NEUTROPHILS # (AUTO) 9.4 K/uL (1.8-7.7); NEUTROPHILS % (AUTO) 87.7 % (40.0-77.0); PLATELET COUNT (AUTO) 280 K/uL (130-400); RED BLOOD CELL COUNT(AUTO) 3.35 MIL/uL (4.50-6.20); RED CELL DISTRIBUTION WIDTH 14.6 % (11.0-15.5); WHITE BLOOD COUNT (AUTO) 10.7 K/uL (4.8-10.8)
[2024-08-10 13:00] LABS: CREATININE 2.2 mg/dL (0.5-1.3); POTASSIUM 3.3 mmol/L (3.5-5.1)
[2024-08-10] MEDS: cefTRIAXone 1G VIAL IVPB STA (13:32)
[2024-08-10] MEDS: [UNRECOGNIZED DRUG - OTHER] IV ONE (13:32)
--- NOTE | 2024-08-10 13:40 | NUR ---
CONSENT OBTAINED FOR IV CONTRAST
[2024-08-10] MEDS ORDERED: IOHEXOL-350 50ML VIAL IV ONE (13:41)
--- NOTE | 2024-08-10 13:41 | NUR ---
RADIOLOGY INFORMED PT READY FOR CT W/IV CONTRAST.
--- NOTE | 2024-08-10 13:55 | NUR ---
PT TO CT SCAN VIA W/C W/CLIENT DEVELOPMENT MANAGER
--- NOTE | 2024-08-10 14:07 | NUR ---
PT JUST RETURNED FROM CT SCAN
--- NOTE | 2024-08-10 14:37 | HMCIMG ---
Exam Type: CT ABDOMEN/PELVIS W/CONTRAST Clinical Information: MIDLINE PELVIC ABDOMINAL PAIN STATUS POST HERNIA REPAIR JUNE 06, 2024 Comparison: None Contrast: 100 cc's Isovue 370 IV, no complications or adverse reactions CT Dose Index (CTDI): 31.60 mGy Dose Length Product (DLP): 1740.80 total mGy-cm Findings: Bilateral moderate to severe hydroureteronephrosis. Bilateral simple renal cysts. Urinary bladder wall is thickened and the prostate is enlarged and these findings may represent chronic bladder outlet obstruction. The lung bases are clear. The stomach is unremarkable. It shows no wall thickening. No gross ulceration is seen. It is not overly distended. There are no surrounding inflammatory changes. No wall lesions are identified to suggest cancer. There is irregular in contour and the spleen is enlarged and these findings may represent cirrhosis. The pancreas shows normal anatomy. It is not fatty replaced. It shows no lesions. The pancreatic duct is not dilated. There is evidence of cholelithiasis. No evidence of acute or chronic inflammation is seen. The adrenal glands are unremarkable. There is no enlargement. No lesions are noted. The appendix is unremarkable. It shows no evidence of inflammation. No appendicolith is seen. The small bowel is unremarkable. There is no evidence of dilatation to suggest obstruction. No evidence of adynamic ileus is seen. There is no small bowel wall thickening to suggest enteritis. There is diverticulosis. There is no evidence of acute inflammation to suggest diverticulitis. The colon is otherwise unremarkable.. Prostate is significantly enlarged. The other pelvic structures are unremarkable. The bony and vascular structures are unremarkable for the patient's age. IMPRESSION: Findings consistent with chronic bladder outlet obstruction and bilateral hydroureteronephrosis. Cholelithiasis and findings suggestive of cirrhosis. This study was performed using dose reduction techniques to include automated exposure control and/or adjustment of the mA and/or kV according to patient size.
[2024-08-10] MEDS: PoTASSium BIcarbonate/CIT AC 25 MEQ TABLET.EFF PO ONE (15:30)
[2024-08-10] MEDS ORDERED: TAMS-1 PO (15:34)
[2024-08-10] MEDS ORDERED: AMOX1TAB16 PO (15:34)
[2024-08-10] MEDS: tamSULOsin HCL 0.4 MG CAP.ER.24H PO ONE (16:01)
[2024-08-10 16:02] LABS: APPEARANCE,URINE TURBID (CLEAR); BILIRUBIN,URINE NEGATIVE (NEGATIVE); COLOR,URINE LIGHT-ORANGE (YELLOW); GLUCOSE, URINE (UA) NEGATIVE (NEGATIVE); KETONES,URINE NEGATIVE (NEGATIVE); LEUKOCYTE ESTERASE ,URINE 500 Leu/uL (NEGATIVE); NITRATE,URINE NEGATIVE (NEGATIVE); OCCULT BLOOD,URINE LARGE (NEGATIVE); PROTEIN,URINE 50 mg/dL (NEGATIVE); UROBILINOGEN,URINE 0.2 mg/dL (0.2-1.0)
[2024-08-10 16:05] LABS: ADD UA MICROSCOPIC YES
[2024-08-10 16:10] LABS: BACTERIA,URINE FEW /HPF (None Seen); MUCUS,URINE RARE LPF (None Seen); RENAL EPITHELIAL CELLS,URINE RARE /HPF (None Seen); WBC CLUMP MANY /HPF (0-1); WBC,URINE TNTC /HPF (0-1)
[2024-08-10 16:40] VITALS: BP 129/69; PULSE 78; RESP 18; O2SAT 98
== END 2024-08-10 16:56 | disposition home or self-care (01) ==
LOC: EDH 11:19
DX: N30.01 Acute cystitis with hematuria (principal); I12.9 Hypertensive chronic kidney disease with stage 1 through stage 4 chronic kidney disease, or unspecified chronic kidney disease; N18.4 Chronic kidney disease, stage 4 (severe); Z99.2 Dependence on renal dialysis; A41.9 Sepsis, unspecified organism; E87.6 Hypokalemia; N13.30 Unspecified hydronephrosis; K80.20 Calculus of gallbladder without cholecystitis without obstruction; Z79.899 Other long term (current) drug therapy; Z85.46 Personal history of malignant neoplasm of prostate; Z98.890 Other specified postprocedural states
CPT/HCPCS: 99285; 74177; 96374; 96361; 80048; 83690; 85025; 87040 ×2; 83605 ×2; 81001; 36415; J7030 ×2; J0696; Q9967; J1885